=== PATIENT | female | born 1965 | race Caucasian/White ===

== ENCOUNTER 2017-12-19 11:02 | Emergency (ER) ==
[2017-12-19 11:17] VITALS: BP 126/77; TEMP 97.4; BMI 40.9
[2017-12-19] MEDS: ANTIVERT PO STA (12:51)
--- NOTE | 2017-12-19 13:19 | CT ---
EXAM: CT of the head without contrast History: Vertigo. Comparison: Head CT 03/08/2017 Technique: Multiplanar CT images through the head were obtained without the administration of IV con trast Findings: The visualized paranasal sinuses and mastoid air cells are clear in general. No acute calv arial abnormalities. Intracranially the ventricular and cisternal spaces are normal in size, shape and configuration for a patient of this age. No dominant mass or midline shift. No hydrocephalous. No acute intracranial hemorrhage or abnormal extraaxial fluid collections. Impression: No acute intracranial process. If symptoms persist, recommend further evaluation with b rain MRI
--- NOTE | 2017-12-19 14:46 | ED.PDOC ---
General ED Provider: Dr. KHANH CAPONE Chief Complaint: Dizziness Stated Complaint: Patient stated she experienced Dizziness while driving on the highway earlier today. States she felt "weird", dizzy. Was experiencing pain in her left chest and her left shoulder. Pain was notably worse with movement. She noted to be more tired lately. States she sleeps a lot. Has had near syncopal episode, speech slurred. Hx DM2. Arrived at this ER per [facility]. Time Seen by Physician: 11:30 Mode of Arrival: Ambulance Information Source: Patient, EMT Exam Limitations: No limitations Primary Care Provider: DURGA VALENCIA Nursing and Triage Documentation Reviewed and Agree: Yes Reviewed sepsis parameters & appropriate labs ordered?: Yes System Inflammatory Response Syndrome: Not Applicable Sepsis Protocol: For patient's 13 years and over: Temp is 96.8 and below OR 101 and greater Pulse >90 BPM Resp >20/minute Acutely Altered Mental Status Are patient's symptoms suggestive of a new infection, such as: -Pneumonia -Skin, Soft Tissue -Endocarditis -UTI -Bone, Joint Infection -Implantable Device -Acute Abdominal Infection -Wound Infection -Meningitis -Blood Stream Catheter Infection -Unknown System Inflammatory Response Syndrome: Not Applicable Neurological Complaint Exam - Dizziness Complaint/Exam Onset: Sudden Duration: Several minutes Symptoms Are: Resolved Timing: Intermittent Episodes Lasting: Minutes Initial Severity: Severe Current Severity: Mild Character: Reports: Lightheaded, Dizzy Aggravating: Reports: Position change Alleviating: Reports: Rest Associated Signs and Symptoms: Reports: Chest pain. Denies: Nausea, Vomiting, Diaphoresis, Short of air, Palpitations, Visual changes, Change in medication, Loss of balance Cardiac Risk Factors: Reports: Hypertension, Diabetes CVA Risk Factors: Reports: Diabetes, Hypertension Related Surgical History: Reports: None JVD Present: No Carotid Bruit Present: No Nystagmus Present: No Gag Reflex Present: No Meningeal Signs Positive: No Focal Weakness: Present: None Focal Sensory Loss: Present: None Gait: Normal Glfavy-sy-Ksub: Normal Findings Romberg Test Positive: Yes Heel to Toe Normal: Yes Chirag-Hallpike Test Positive: No Differential Diagnoses: CAD, FL, Medication reaction, Vasovagal reaction Review of Systems - Review Of Systems Constitutional: Reports: No symptoms Eyes: Reports: No symptoms Ears, Nose, Mouth, Throat: Reports: No symptoms Respiratory: Reports: No symptoms Cardiac: Reports: No symptoms, Chest pain GI: Reports: No symptoms : Reports: No symptoms Musculoskeletal: Reports: No symptoms Skin: Reports: No symptoms Neurological: Reports: No symptoms Endocrine: Reports: No symptoms Hematologic/Lymphatic: Reports: No symptoms All Other Systems: Reviewed and Negative Past Medical History - Past Medical History Endocrine: Reports: DM 2 Cardiovascular: Reports: Hypertension Respiratory: Reports: None Hematological: Reports: Anemia Gastrointestinal: Reports: GERD Genitourinary: Reports: None Neuro/Psych: Reports: None Musculoskeletal: Reports: None Cancer: Reports: None Last Menstrual Period: uterine ablation - Surgical History General Surgical History: Reports: None - Family History Family History: Reports: None - Social History Smoking Status: Never smoker Hx Substance Use: No Alcohol Screening: None - Immunizations Tetanus Shot up to Date: No Physical Exam - Physical Exam Appearance: Well-appearing Ill-appearing: None Pain Distress: None Eyes: CLOVIS, EOMI, Conjunctiva clear ENT: Ears normal, Nose normal, Oropharynx normal Neck: Supple Respiratory: Airway patent, Breath sounds clear, Breath sounds equal Cardiovascular: RRR, Pulses normal GI/: Soft, Nontender, No masses Musculoskeletal: Normal strength, ROM intact, No edema Skin: Warm, Dry, Normal color Neurological: Sensation intact, Motor intact, Reflexes intact, Cranial nerves intact, Alert, Oriented Psychiatric: Affect appropriate, Mood appropriate Critical Care Note - Critical Care Note Total Time (mins): 15 Course - Course Hematology/Chemistry: 12/19/17 12:55 12/19/17 12:55 Orders, Labs, Meds: Lab Review 12/19/17 12/19/17 12:55 12:55 WBC 7.18 RBC 4.33 Hgb 13.1 Hct 38.6 MCV 89.1 MCH 30.3 MCHC 33.9 RDW Coeff of Bonita 12.3 Plt Count 218 Immature Gran % (Auto) 0.3 Neut % (Auto) 78.0 Lymph % (Auto) 14.3 [place] % (Auto) 5.7 Eos % (Auto) 1.3 Baso % (Auto) 0.4 Immature Gran # (Auto) 0.0 Neut # 5.6 Lymph # 1.0 [place] # 0.4 Eos # 0.1 Baso # 0.0 Sodium 143 Potassium 4.4 Chloride 109 H Carbon Dioxide 26 Anion Gap 12.4 BUN 22 H Creatinine 1.00 Estimated GFR (MDRD) 58.00 BUN/Creatinine Ratio 22.00 Glucose 108 Calcium 9.5 Total Bilirubin 0.3 AST 24 ALT 26 Alkaline Phosphatase 90 Troponin I < 0.0100 Total Protein 6.9 Albumin 3.4 Globulin 3.5 Albumin/Globulin Ratio 0.97 Orders Category Date Time Status EKG-(ED ONLY) Stat CARDIO 12/19/17 11:07 Completed EKG-(ED ONLY) Stat CARDIO 12/19/17 12:27 Completed CBC W/ AUTO DIFF Stat LAB 12/19/17 12:55 Completed CMP [COMPREHENSIVE METABOLIC PANEL] Stat LAB 12/19/17 12:55 Completed TROPONIN I Stat LAB 12/19/17 12:55 Completed Meclizine HCl [Antivert] MEDS 12/19/17 12:26 Discontinued 25 mg PO ONCE STA CT HEAD W/O CONTRAST Stat RADS 12/19/17 12:27 Completed Medications Discontinued Medications Generic Name Dose Route Start Last Admin Trade Name Freq PRN Reason Stop Dose Admin Meclizine HCl 25 mg 12/19/17 12:26 12/19/17 12:51 Antivert PO 12/19/17 12:27 25 mg ONCE STA Administration Vital Signs: Temp Pulse Resp BP Pulse Ox 12/19/17 11:06 97.4 F L 76 20 126/77 97 Departure - Departure Time of Disposition: 14:45 Disposition: HOME SELF-CARE Discharge Problem: Vertigo Instructions: Motion Sickness (ED), Vertigo (ED) Condition: Good Pt referred to PMD for follow-up: Yes IPMP verified?: No Additional Instructions: Take meds as directed See PCP in next week Avoid Driving motor vehicle until cleared by pcp Prescriptions: Meclizine HCl 25 mg PO Q8HR PRN #30 tablet PRN Reason: Dizziness Allergies/Adverse Reactions: Allergies adhesive tape Adverse Reaction (Verified 12/19/17 11:18) latex Adverse Reaction (Verified 12/19/17 11:18) morphine Adverse Reaction (Verified 12/19/17 11:18) Sulfa (Sulfonamide Antibiotics) Adverse Reaction (Verified 12/19/17 11:18) vancomycin Adverse Reaction (Verified 12/19/17 11:18) Home Medications: Ambulatory Orders Meclizine HCl 25 mg PO Q8HR PRN #30 tablet 12/19/17 Disposition Discussed With: Patient
== END 2017-12-19 14:57 | disposition home or self-care (01) ==
LOC: ED 11:02
DX: R42 Dizziness and giddiness (principal); R07.9 Chest pain, unspecified; E11.9 Type 2 diabetes mellitus without complications; I10 Essential (primary) hypertension
CPT/HCPCS: 36415; 80053; 84484; 85025; 93005; 93010; 99285